=== PATIENT | male | born 1955 ===

== ENCOUNTER 2016-04-23 14:09 | Outpatient (CLI) | payer OTHER ==
[2016-04-23 14:49] LABS: eGFR (African) > 60; eGFR (Non-African) > 60
== END 2016-04-23 14:10 ==
LOC: LAB 14:09
PROVIDERS: ATTEND Physician Assistant
DX: Z00.00 Encounter for general adult medical examination without abnormal findings (principal); Z13.6 Encounter for screening for cardiovascular disorders
CPT/HCPCS: 36415; 80053; 80061

== ENCOUNTER 2016-04-29 10:44 | Outpatient (CLI) | payer OTHER | END 2016-04-29 10:45 | LOC: LAB 10:44 | PROVIDERS: ATTEND Physician Assistant | DX: R60.0 Localized edema (principal) | CPT/HCPCS: 36415; 83880 ==

== ENCOUNTER 2016-04-30 10:37 | Outpatient (CLI) | payer OTHER ==
--- NOTE | 2016-04-30 13:02 | Diagnostic Imaging Report ---
[facility] [id number] [facility].[address] 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 Smoker. FINDINGS: Severe pulmonary edema is present with confluent edema or infiltrate at both lung bases. Small to moderate bilateral pleural effusions, cardiomegaly, and pulmonary vascular congestion are observed. Superior mediastinal widening is present. IMPRESSION: Probable congestive heart failure. Superior mediastinal widening is indeterminate. Recommend short-term radiographic follow-up. If findings persist, recommend computed tomography of the chest with contrast. Electronically signed on Apr 30, 2016 1:00:34 PM SCALE MECHANIC by: Carlo SOUTH
== END 2016-04-30 10:40 ==
LOC: CARD 10:37
PROVIDERS: ATTEND Internal Medicine Cardiovascular Disease
DX: R06.02 Shortness of breath (principal); F17.210 Nicotine dependence, cigarettes, uncomplicated
CPT/HCPCS: 71020

== ENCOUNTER 2016-05-01 11:44 | Outpatient (CLI) | payer OTHER ==
[2016-05-01 12:03] LABS: APPEARANCE,URINE Clear (CLEAR); COLOR,URINE Yellow (YELLOW); OCCULT BLOOD,URINE Negative (NEGATIVE); PH URINE 6.5 (5.0 - 8.0); UROBILINOGEN URINE 0.2 Eu (0.2-1.0)
== END 2016-05-01 11:45 ==
LOC: LAB 11:44
PROVIDERS: ATTEND Internal Medicine Cardiovascular Disease
DX: R06.02 Shortness of breath (principal)
CPT/HCPCS: 81002

== ENCOUNTER 2016-05-07 13:57 | Outpatient (CLI) | payer OTHER ==
[2016-05-07 16:33] LABS: eGFR (African) > 60; eGFR (Non-African) > 60
== END 2016-05-07 14:05 ==
LOC: CARD 13:57
PROVIDERS: ATTEND Internal Medicine Cardiovascular Disease
DX: I48.91 Unspecified atrial fibrillation (principal)
CPT/HCPCS: 36415; 80048; 84443